=== PATIENT | female | born 1995 | race Caucasian/White ===

== ENCOUNTER 2019-11-22 11:20 | Outpatient (CLI) | payer BC ==
[2019-11-22 14:42] VITALS: BP 121/68; PULSE 87; RESP 15; TEMP 96.6
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
== END 2019-11-22 14:42 | disposition home or self-care (01) ==
LOC: FBPOP 11:20
PROVIDERS: ATTEND Obstetrics & Gynecology
DX: O36.8131 Decreased fetal movements, third trimester, fetus 1 (principal); Z3A.29 29 weeks gestation of pregnancy
CPT/HCPCS: 59025; 99213

== ENCOUNTER 2020-02-04 09:51 | Inpatient (IN) | payer BC ==
--- NOTE | 2020-02-04 18:30 | P.HPOB ---
History of Present Illness H&P Date: 02/04/20 Chief Complaint: Induction of labor This is a 24 y.o. female, 1, para 0, with an estimated date of confinement of 02/04/2020, estimated gestational age of 40-1/7 weeks, who presents for induction of labor. She is experiencing irregular contractions and pressure. course has been complicated by recurrent yeast infections. labs: Hepatitis B surface antigen-neg RPR-NR Rubella-immune Blood type-B+ Antibody screen-neg HIV-NR Hemoglobin-14 Glucose-74 1 hr. 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 Review of Systems Constitutional: Denies chills, Denies fever Eyes: denies blurred vision, denies pain Ears, nose, mouth and throat: Denies headache, Denies sore throat Respiratory: Denies cough Gastrointestinal: Reports abdominal pain (irregular contractions), Denies diarrhea, Denies nausea, Denies vomiting Genitourinary: Reports pelvic pain, Reports Musculoskeletal: Reports low back pain Integumentary: Denies pruritus, Denies rash Past Medical History Past Medical History: No Reported History History of Any Multi-Drug Resistant Organisms: None Reported Past Surgical History: Adenoidectomy, Tonsillectomy Past Psychological History: No Psychological Hx Reported Smoking Status: Former smoker Past Alcohol Use History: None Reported Past Drug Use History: None Reported - Past Family History Mother Family Medical History: No Reported History Medications and Allergies Home Medications Medication Instructions Recorded Confirmed Type Pnv No.95/Ferrous Fum/Folic AC 1 11/22/19 History [ Multivitamin Tablet] Allergies Allergy/AdvReac Type Severity Reaction Status Date / Time No Known Allergies Allergy Verified 11/22/19 11:32 Exam Osteopathic Statement: *. No significant issues noted on an osteopathic structural exam other than those noted in the History and Physical/Consult. HEENT: within normal limits Heart: regular rate and rhythm Lungs: clear to auscultation bilaterally Abdomen: heart tones: 140s by doppler Cervix: 1.5-2 cm/70%/-2 Extremities: neg. Homans Assessment and Plan (1) 40 weeks gestation of Status: Acute Code(s): Z3A.40 - 40 WEEKS GESTATION OF SNOMED Code(s): 75324153 Plan: Admission for induction of labor. Expectant management. Epidural anesthesia if desired.
[2020-02-05] MEDS: LACTATED RINGERS 1,000 ML IV SCH ×3 (06:25→14:28)
[2020-02-05] MEDS ORDERED: LIDOCAINE 0.5% (PF) 5 MG/ML (50 ML SDV) SQ PRN (06:31)
[2020-02-05] MEDS ORDERED: METHYLERGONOVINE 0.2 MG/ML 1 ML AMP IM PRN (06:31)
[2020-02-05] MEDS ORDERED: OXYTOCIN 10 UNIT/ML 1 ML VIAL IM PRN (06:31)
[2020-02-05] MEDS ORDERED: LIDOCAINE 1% (10MG/ML) FOR IV START INTRADERMA PRN (06:31)
[2020-02-05] MEDS ORDERED: OXYTOCIN 30 UNITS/500 ML NS 30 UNIT in SALINE 1 500ML.BAG IV SCH (06:31)
[2020-02-05] MEDS ORDERED: CARBOPROST TROMETHAMINE 250 MCG/ML 1 ML AMP IM PRN (06:31)
[2020-02-05] MEDS ORDERED: TERBUTALINE 1 MG/ML VIAL SQ PRN (06:31)
[2020-02-05 06:46] LABS: Basophils % (A) 0 %; Eosinophils # (A) 0.1 k/uL (0-0.7); Eosinophils % (A) 1 %; HCT 38.2 % (34.0-46.0); HGB 13.2 gm/dL (11.4-16.0); Lymphocytes # (A) 1.3 k/uL (1.0-4.8); Lymphocytes % (A) 18 %; MCH 32.3 pg (25.0-35.0); MCHC 34.6 g/dL (31.0-37.0); MCV 93.4 fL (80.0-100.0); Mean Platelet Volume 8.5; Monocytes # (A) 0.5 k/uL (0-1.0); Monocytes % (A) 7 %; Neutrophils % (A) 70 %; Platelet Count 224 k/uL (150-450); RBC 4.09 m/uL (3.80-5.40); RDW 12.6 % (11.5-15.5); WBC 7.1 k/uL (3.8-10.6)
[2020-02-05] MEDS: BUTORPHANOL 1 MG/ML 1 ML VIAL IV PRN ×2 (10:39→13:11)
[2020-02-05] MEDS ORDERED: ROPIVACAINE 5MG/ML 20ML VIAL ONE (14:08)
[2020-02-05] MEDS ORDERED: SODIUM CHLORIDE 0.9% 100 ML BAG ONE (14:08)
[2020-02-05] MEDS ORDERED: fentaNYL (PF) 50 MCG/ML 5 ML AMP ONE (14:08)
[2020-02-05] MEDS ORDERED: ZOLPIDEM 5 MG TAB PO PRN (19:27)
[2020-02-05] MEDS ORDERED: diphenhydrAMINE 25 MG CAP PO PRN (19:27)
[2020-02-05] MEDS ORDERED: HYDROCORTISONE 2.5% RECTAL CREAM 30 GM TUBE RECTAL PRN (19:27)
[2020-02-05] MEDS ORDERED: WITCH HAZEL 1 EACH MED..PAD TOPICAL PRN (19:27)
[2020-02-05] MEDS ORDERED: BENZOCAINE/MENTHOL SPRAY 1 GM/SPRAY AEROSOL TOPICAL PRN (19:27)
[2020-02-05] MEDS ORDERED: diphenhydrAMINE 50 MG CAP PO PRN (19:27)
[2020-02-05] MEDS ORDERED: diphenhydrAMINE 50 MG/ML 1 ML VIAL IVP PRN ×2 (19:27)
[2020-02-05] MEDS ORDERED: SIMETHICONE 80 MG CHEWABLE PO PRN (19:27)
[2020-02-05] MEDS ORDERED: LANOLIN CREAM 5 GM TUBE TOPICAL PRN (19:27)
[2020-02-05] MEDS ORDERED: OXYTOCIN 20 UNITS/1000 ML NS 1,000 ML IV SCH (19:27)
--- NOTE | 2020-02-05 19:47 | P.PROBDLV ---
Vaginal Delivery Note - . Vaginal Delivery Note: The patient progressed to complete dilation after oxytocin induction of labor and artificial rupture membranes with clear fluid noted. She did receive epidural anesthesia while in labor. Once reaching complete dilation, she began pushing. 's head came to a crown. With one further push, the infant's head delivered across the perineum followed by the anterior shoulder. Nose and mouth were bulb suctioned at the perineum. With one further push, the remainder the infant delivered and was placed on mother's abdomen. Cord was clamped and cut and infant was taken to warmer for evaluation. A viable male was noted with scores of 9 at 1 minute and 9 at 5 minutes and weight of 8 lbs. 9 oz. Placenta delivered shortly thereafter, intact, with a three-vessel cord. Uterus contracted well after oxytocin was given and uterine massage was carried out. Inspection of the perineum revealed a fourth degree perineal laceration. This area was anesthetized with 1% lidocaine. The rectal mucosa was then reapproximated with 3-0 Vicryl suture in a running fashion. Next the vaginal mucosa was sutured with 3-0 Vicryl suture in a running fashion up to the introitus. A 3-0 Vicryl suture was then used to reapproximate the rectal sphincter muscle mucosa in all 4 quadrants. Once the muscle was reapproximated, a 2-0 Vicryl suture was used to close the subcutaneous space in interrupted fashion. Next the previously held 3-0 Vicryl suture was brought underneath the vaginal mucosa and then sutured in a running fashion down to the rectum and then in a subcuticular fashion on the skin up to the introitus and tied. Good hemostasis was noted. Several clots were expressed from the uterus and no further placental tissue was obtained. Uterus was noted to be firm. Estimated blood loss is approximately 200 mL's. Both mother and are in stable condition.
[2020-02-05] MEDS: IBUPROFEN 600 MG TAB PO PRN (21:00)
[2020-02-05] MEDS: SENNOSIDES-DOCUSATE SODIUM 1 EACH TAB PO SCH (21:02)
[2020-02-05] MEDS: ACETAMINOPHEN TAB 325 MG TAB PO PRN (23:50)
[2020-02-06] MEDS: IBUPROFEN 600 MG TAB PO PRN ×3 (03:10→20:42)
[2020-02-06 08:31] LABS: Basophils % (A) 0 %; Eosinophils % (A) 0 %; HGB 10.3 gm/dL (11.4-16.0); Lymphocytes # (A) 1.4 k/uL (1.0-4.8); Lymphocytes % (A) 12 %; MCHC 33.2 g/dL (31.0-37.0); MCV 96.3 fL (80.0-100.0); Mean Platelet Volume 8.8; Monocytes # (A) 0.6 k/uL (0-1.0); Monocytes % (A) 5 %; Neutrophils # (A) 9.4 k/uL (1.3-7.7); Neutrophils % (A) 81 %; Platelet Count 178 k/uL (150-450); RBC 3.21 m/uL (3.80-5.40); RDW 12.8 % (11.5-15.5); WBC 11.6 k/uL (3.8-10.6)
[2020-02-06] MEDS: ACETAMINOPHEN TAB 325 MG TAB PO PRN ×2 (08:44→16:14)
--- NOTE | 2020-02-06 08:45 | P.PNOBGVD ---
Subjective - Subjective Principal diagnosis: Status post vaginal delivery day #1 Interval history: Patient is doing well. Lochia is decreasing. Pain is fairly well controlled. She has been urinating without difficulty. She has not had a bowel movement but is passing flatus. She is working on breast-feeding. Patient reports: Reports appetite normal, Reports voiding normally, Reports pain well controlled, Reports ambulating normally Gibson: doing well, nursing well Objective - Latest Vital Signs Latest vital signs: Vital Signs Temp Pulse Resp BP 02/06/20 03:50 98.1 F 92 18 132/60 02/06/20 00:00 98.4 F 107 H 18 133/62 02/05/20 21:53 98.1 F 115 H 18 133/66 02/05/20 21:22 116 H 18 120/72 02/05/20 20:53 98.2 F 109 H 18 126/73 02/05/20 20:38 97 18 124/72 02/05/20 20:23 101 H 18 128/65 02/05/20 20:08 18 02/05/20 19:53 97.3 F L 98 18 123/73 Intake and Output 02/05/20 02/06/20 02/06/20 22:59 06:59 14:59 Intake Total 600 Output Total 200 700 Balance 400 -700 Intake: IV 600 Output: Urine 700 Straight 700 Estimated Blood Loss 200 - Exam Extremities: Present: normal. Absent: tenderness, edema Abdomen: Present: normal appearance, soft. Absent: distention, tenderness Uterus: Present: normal, firm. Absent: tenderness - Labs Labs: Abnormal Lab Results - Last 24 Hours (Table) 02/06/20 Range/Units 07:29 WBC 11.6 H (3.8-10.6) k/uL RBC 3.21 L (3.80-5.40) m/uL Hgb 10.3 L (11.4-16.0) gm/dL Hct 31.0 L (34.0-46.0) % Neutrophils # 9.4 H (1.3-7.7) k/uL Assessment and Plan Assessment: Status post vaginal delivery day #1 (1) 40 weeks gestation of Current Visit: No Status: Acute Code(s): Z3A.40 - 40 WEEKS GESTATION OF SNOMED Code(s): 20234876 Plan: Continue with care today. Will work on breast-feeding. Anticipate discharge home tomorrow.
--- NOTE | 2020-02-06 08:49 | P.DS ---
Providers Date of admission: 02/05/20 06:00 Expected date of discharge: 02/07/20 Attending physician: Jennifer Hines Primary care physician: Stated None - Discharge Diagnosis(es) (1) 40 weeks gestation of Current Visit: No Status: Acute Hospital Course: This is a 24-year-old female 1 para 0 at 40 and one sevenths weeks who presented for induction of labor. She underwent oxytocin induction of labor and delivered a vaginal delivery of a viable male infant on 02/05/2020 with scores of 9 at 1 minute and 9 at 5 minutes and infant weight of 8 lbs. 9 oz. Her delivery was, located by a fourth degree laceration. Her course has been so far uncomplicated. She is urinating without difficulty she is passing flatus but no bowel movement yet. Her pain is fairly well controlled. She is working on breast-feeding. Lochia is decreasing. Vital signs are stable. Abdomen is soft with fundus firm and nontender. Extremities show negative Homans. Impression is status post vaginal delivery day #1. Plan is to discharge home tomorrow. Routine instructions are given. She will be given a prescription for ibuprofen. She has a breast pump at home. She is encouraged to continue taking stool softeners and keep her stools softer while she is healing. She is advised to follow up in the office in 6 weeks. She is advised to call the office if she has any further questions or concerns prior to her appointment time. Procedures: Oxytocin induction of labor Spontaneous vaginal delivery of a viable male on 02/05/2020 Patient Condition at Discharge: Stable Plan - Discharge Summary New Discharge Prescriptions: New Ibuprofen [Motrin] 600 mg PO Q6HR PRN #60 tab PRN Reason: Mild Pain Or Fever >= 100.5 No Action Pnv No.95/Ferrous Fum/Folic AC [ Multivitamin Tablet] 1 tab PO DAILY Discharge Medication List Pnv No.95/Ferrous Fum/Folic AC [ Multivitamin Tablet] 1 tab PO DAILY 11/22/19 [History] Ibuprofen [Motrin] 600 mg PO Q6HR PRN #60 tab 02/06/20 [Rx] Follow up Appointment(s)/Referral(s): Jennifer Hines DO [Doctor of Osteopathic Medicine] - 6 Weeks Activity/Diet/Wound Care/Special Instructions: Instructions 1. Do not begin any exercise program for 3 weeks. 2. Do not resume sexual relations for 3 weeks or longer if uncomfortable. 3. You may take tub baths or showers at any time. 4. You may use tampons if desired after 3 weeks. 5. Keep the area of episiotomy (stitches) clean and dry. 6. If you are not nursing, wear a good fitting, supportive bra during the day and limit fluid intake for at least 1 week to prevent breast engorgement. 7. Call the office, [phone], within the next week to make appointment for your 6 week checkup if it has not already been made. 8. Report any of the following occurrences to the doctor promptly: a. Heavy, excessive bleeding b. Chills, fever c. Burning or frequency of urination d. Pain or redness and breasts if nursing e. Increasing pain or swelling in episiotomy (stitches). In addition to the above instructions, the following additional should be followed: 1. No heavy lifting or straining (exercising) until after 6 week checkup. 2. Keep abdominal incision clean and dry: You may wear a dressing if more comfortable. 3. Make office appointment for 10 days after going home or as instructed by her doctor. Discharge Disposition: HOME SELF-CARE
[2020-02-06] MEDS: SENNOSIDES-DOCUSATE SODIUM 1 EACH TAB PO SCH ×2 (12:27→20:42)
[2020-02-06 12:41] VITALS: RESP 16
[2020-02-07] MEDS: IBUPROFEN 600 MG TAB PO PRN (05:53)
[2020-02-07] MEDS: SENNOSIDES-DOCUSATE SODIUM 1 EACH TAB PO SCH (08:06)
[2020-02-07 08:09] VITALS: BP 124/71; PULSE 101; TEMP 98.6
== END 2020-02-07 11:00 | disposition home or self-care (01) | DRG 768 ==
LOC: 4FBP 02-05 06:00
PROVIDERS: ADMIT Obstetrics & Gynecology; ATTEND Obstetrics & Gynecology
PROC: 00HU33Z Insertion of Infusion Device into Spinal Canal, Percutaneous Approach (ICD-10-PCS; principal; 2020-02-05)
PROC: 10E0XZZ Delivery of Products of Conception, External Approach (ICD-10-PCS; principal; 2020-02-05)
PROC: 10907ZC Drainage of Amniotic Fluid, Therapeutic from Products of Conception, Via Natural or Artificial Opening (ICD-10-PCS; principal; 2020-02-05)
PROC: 3E033VJ Introduction of Other Hormone into Peripheral Vein, Percutaneous Approach (ICD-10-PCS; principal; 2020-02-05)
PROC: 3E0R3BZ Introduction of Anesthetic Agent into Spinal Canal, Percutaneous Approach (ICD-10-PCS; principal; 2020-02-05)
PROC: 0DQP0ZZ Repair Rectum, Open Approach (ICD-10-PCS; principal; 2020-02-05)
DX: O99.62 Diseases of the digestive system complicating childbirth (principal); Z37.0 Single live birth; O70.3 Fourth degree perineal laceration during delivery; K21.9 Gastro-esophageal reflux disease without esophagitis; Z3A.40 40 weeks gestation of pregnancy; Z87.891 Personal history of nicotine dependence
CPT/HCPCS: 85025; 86850; 86900; 86901

== ENCOUNTER → 2020-10-05 | Outpatient (CLI) | payer BC ==
[2020-10-05 13:25] LABS: HCT 42.7 % (34.0-46.0); HGB 14.2 gm/dL (11.4-16.0); MCHC 33.3 g/dL (31.0-37.0); Mean Platelet Volume 7.6; Platelet Count 281 k/uL (150-450); RBC 4.59 m/uL (3.80-5.40); RDW 12.5 % (11.5-15.5); WBC 9.4 k/uL (3.8-10.6)
[2020-10-05 18:49] LABS: African American GFR (CKD) 147.9 (60.0-200.0); Non-African American GFR(CKD) 127.6 (60.0-200.0)
[2020-10-05 20:26] LABS: Hepatitis B Surface Antigen Non-Reactive (Non-Reactive)
== END | disposition home or self-care (01) ==
LOC: LABWHC1 10:51
PROVIDERS: ATTEND Obstetrics & Gynecology
DX: Z34.81 Encounter for supervision of other normal pregnancy, first trimester (principal)
CPT/HCPCS: 36415; 82565; 82947; 85027; 86762; 86780; 86850; 86900; 86901; 87340

== ENCOUNTER 2021-05-12 06:06 | Inpatient (IN) | payer BC ==
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
[2021-05-12] MEDS ORDERED: OXYTOCIN 10 UNIT/ML 1 ML VIAL IM PRN (06:16)
[2021-05-12] MEDS ORDERED: CARBOPROST TROMETHAMINE 250 MCG/ML 1 ML AMP IM PRN (06:16)
[2021-05-12] MEDS ORDERED: METHYLERGONOVINE 0.2 MG/ML 1 ML AMP IM PRN (06:16)
[2021-05-12] MEDS ORDERED: TERBUTALINE 1 MG/ML VIAL SQ PRN (06:16)
[2021-05-12] MEDS ORDERED: LIDOCAINE 1% (10MG/ML) FOR IV START INTRADERMA PRN (06:16)
[2021-05-12] MEDS ORDERED: OXYTOCIN 30 UNITS/500 ML NS 30 UNIT in SALINE 1 500ML.BAG IV SCH ×2 (06:16→15:00)
[2021-05-12] MEDS ORDERED: LIDOCAINE 0.5% (PF) 5 MG/ML (50 ML SDV) SQ PRN (06:16)
[2021-05-12] MEDS: LACTATED RINGERS 1,000 ML IV SCH ×2 (06:31→11:25)
[2021-05-12 06:44] LABS: Basophils % (A) 0 %; Eosinophils # (A) 0.1 k/uL (0-0.7); Eosinophils % (A) 1 %; HCT 40.5 % (34.0-46.0); HGB 14.3 gm/dL (11.4-16.0); Lymphocytes # (A) 1.5 k/uL (1.0-4.8); Lymphocytes % (A) 20 %; MCHC 35.3 g/dL (31.0-37.0); MCV 93.4 fL (80.0-100.0); Mean Platelet Volume 7.9; Monocytes # (A) 0.5 k/uL (0-1.0); Monocytes % (A) 7 %; Neutrophils # (A) 5.3 k/uL (1.3-7.7); Neutrophils % (A) 71 %; Platelet Count 193 k/uL (150-450); RBC 4.34 m/uL (3.80-5.40); RDW 12.1 % (11.5-15.5); WBC 7.5 k/uL (3.8-10.6)
[2021-05-12] MEDS ORDERED: BUTORPHANOL 1 MG/ML 1 ML VIAL IV PRN (09:31)
[2021-05-12] MEDS ORDERED: ROPIVACAINE 100 MG, fentaNYL (PF). 200 MCG in SODIUM CHLORIDE 0.9% 76 ML EPIDURAL ONE (11:58)
[2021-05-12] MEDS ORDERED: LANOLIN CREAM 5 GM TUBE TOPICAL PRN (14:46)
[2021-05-12] MEDS ORDERED: SIMETHICONE 80 MG CHEWABLE PO PRN (14:46)
[2021-05-12] MEDS ORDERED: ACETAMINOPHEN TAB 325 MG TAB PO PRN (14:46)
[2021-05-12] MEDS ORDERED: diphenhydrAMINE 50 MG CAP PO PRN (14:46)
[2021-05-12] MEDS ORDERED: HYDROCORTISONE 2.5% RECTAL CREAM 30 GM TUBE RECTAL PRN (14:46)
[2021-05-12] MEDS ORDERED: BENZOCAINE/MENTHOL SPRAY 1 GM/SPRAY AEROSOL TOPICAL PRN (14:46)
[2021-05-12] MEDS ORDERED: diphenhydrAMINE 25 MG CAP PO PRN (14:46)
[2021-05-12] MEDS ORDERED: ZOLPIDEM 5 MG TAB PO PRN (14:46)
[2021-05-12] MEDS: IBUPROFEN 600 MG TAB PO SCH ×2 (16:46→21:03)
--- NOTE | 2021-05-12 17:55 | P.PROBDLV ---
Vaginal Delivery Note - . Vaginal Delivery Note: The patient progressed to complete dilation after oxytocin induction of labor and artificial rupture membranes with clear fluid noted. Once reaching complete, she began pushing. Infant's head came to a crown. With one further push, the infant's head delivered across the perineum followed by the anterior shoulder. Nose and mouth were bulb suctioned. With one remaining push, the remainder the easily delivered and was placed on mother's abdomen. Cord was clamped and cut and was taken to warmer for evaluation. A viable female infant is noted with scores of 8 at 1 minute and 8 at 5 minutes and infant weight of 9 lbs. 0 oz. Placenta delivered shortly thereafter, intact, with a three-vessel cord. Uterus contracted well after oxytocin was given and uterine massage was carried out. Inspection of the perineum revealed a small second-degree perineal laceration. This area was anesthetized with 1% lidocaine and then sutured with 3-0 Vicryl suture in the usual multilayer fashion. Estimated blood loss is approximately 100 mL's. Both mother and are in stable condition.
[2021-05-12] MEDS: SENNOSIDES-DOCUSATE SODIUM 1 EACH TAB PO SCH (21:03)
[2021-05-13] MEDS: IBUPROFEN 600 MG TAB PO SCH ×2 (01:50→07:59)
[2021-05-13 06:49] LABS: Basophils # (A) 0.1 k/uL (0-0.2); Basophils % (A) 1 %; Eosinophils # (A) 0.1 k/uL (0-0.7); Eosinophils % (A) 1 %; HCT 37.4 % (34.0-46.0); HGB 12.8 gm/dL (11.4-16.0); Lymphocytes # (A) 1.7 k/uL (1.0-4.8); Lymphocytes % (A) 16 %; MCH 32.2 pg (25.0-35.0); MCHC 34.2 g/dL (31.0-37.0); MCV 94.4 fL (80.0-100.0); Mean Platelet Volume 8.1; Monocytes # (A) 0.5 k/uL (0-1.0); Monocytes % (A) 5 %; Neutrophils # (A) 8.5 k/uL (1.3-7.7); Neutrophils % (A) 78 %; Platelet Count 167 k/uL (150-450); RBC 3.97 m/uL (3.80-5.40); RDW 12.2 % (11.5-15.5)
--- NOTE | 2021-05-13 07:32 | P.DS ---
Providers Date of admission: 05/12/21 06:06 Expected date of discharge: 05/13/21 Attending physician: Jennifer Hines Primary care physician: Stated None - Discharge Diagnosis(es) (1) 39 weeks gestation of Current Visit: No Status: Acute Hospital Course: This is a 25-year-old female 2 para 1 at 39-2/7 weeks who presented for induction of labor. She underwent oxytocin induction of labor and delivered vaginally a viable female on 05/12/2021. Her course has been uncomplicated. Lochia has been decreasing. Pain is well-controlled with ibuprofen. She is working on breast-feeding. Vital signs are stable. Abdomen is soft with fundus firm and nontender. Extremities show negative Homans. Impression is status post vaginal delivery day #1. Plan is to discharge home today. Routine instructions are given. She will be given a prescription for ibuprofen. She has a breast pump at home. She is advised follow-up in the office in 6 weeks. She is advised to call the office if she has any further questions or concerns prior to her appointment time. Procedures: Oxytocin induction of labor Spontaneous vaginal delivery of a viable female infant on 05/12/2021 Patient Condition at Discharge: Stable Plan - Discharge Summary New Discharge Prescriptions: New Ibuprofen [Motrin] 600 mg PO Q6H #60 tab Continue Pnv No.95/Ferrous Fum/Folic AC [ Multivitamin Tablet] 1 tab PO DAILY Discharge Medication List Pnv No.95/Ferrous Fum/Folic AC [ Multivitamin Tablet] 1 tab PO DAILY 11/22/19 [History] Ibuprofen [Motrin] 600 mg PO Q6H #60 tab 05/13/21 [Rx] Follow up Appointment(s)/Referral(s): Jennifer Hines DO [Doctor of Osteopathic Medicine] - 06/20/21 11:30 am Activity/Diet/Wound Care/Special Instructions: Instructions 1. Do not begin any exercise program for 3 weeks. 2. Do not resume sexual relations for 3 weeks or longer if uncomfortable. 3. You may take tub baths or showers at any time. 4. You may use tampons if desired after 3 weeks. 5. Keep the area of episiotomy (stitches) clean and dry. 6. If you are not nursing, wear a good fitting, supportive bra during the day and limit fluid intake for at least 1 week to prevent breast engorgement. 7. Call the office, [phone], within the next week to make appointment for your 6 week checkup if it has not already been made. 8. Report any of the following occurrences to the doctor promptly: a. Heavy, excessive bleeding b. Chills, fever c. Burning or frequency of urination d. Pain or redness and breasts if nursing e. Increasing pain or swelling in episiotomy (stitches). In addition to the above instructions, the following additional should be followed: 1. No heavy lifting or straining (exercising) until after 6 week checkup. 2. Keep abdominal incision clean and dry: You may wear a dressing if more comfortable. 3. Make office appointment for 10 days after going home or as instructed by her doctor. Discharge Disposition: HOME SELF-CARE
[2021-05-13] MEDS: SENNOSIDES-DOCUSATE SODIUM 1 EACH TAB PO SCH (08:00)
[2021-05-13 08:14] VITALS: BP 108/66; PULSE 77; RESP 15; TEMP 98.1
== END 2021-05-13 15:27 | disposition home or self-care (01) | DRG 807 ==
LOC: 4FBP 06:06
PROVIDERS: ADMIT Obstetrics & Gynecology; ATTEND Obstetrics & Gynecology
PROC: 10E0XZZ Delivery of Products of Conception, External Approach (ICD-10-PCS; principal; 2021-05-12)
PROC: 0KQM0ZZ Repair Perineum Muscle, Open Approach (ICD-10-PCS; 2021-05-12)
DX: O70.1 Second degree perineal laceration during delivery (principal); Z37.0 Single live birth; Z3A.39 39 weeks gestation of pregnancy; Z87.891 Personal history of nicotine dependence
CPT/HCPCS: 85025; 86850; 86900; 86901